=== PATIENT | female | born 1965 | race American Indian/Alaskan Native ===

== ENCOUNTER 2017-03-11 23:44 | Emergency (ER) | payer BC, MEDICARE ==
--- NOTE | 2017-03-12 02:18 | XRay Report ---
FINAL REPORT EXAM: XR CHEST ROUTINE 2V HISTORY: Shortness of breath. TECHNIQUE: Frontal and lateral radiographs of the chest were obtained. No prior studies are available for comparison. FINDINGS: There is borderline cardiomegaly. The lungs are clear bilaterally, without focal infiltrate or effusion. There is no pneumothorax. Mild spondylotic changes are seen in the spine. IMPRESSION: Borderline cardiomegaly. No active disease seen in the chest.
[2017-03-12 02:30] LABS: Basophils # (Auto) 0.1 K/mm3 (0.0-0.1); Eosinophils # (Auto) 0.1 K/mm3 (0.0-0.4); Eosinophils % (Auto) 1.1 % (0.0-4.3); Hematocrit 36.7 % (30.3-42.9); Lymphocytes % (Auto) 35.3 % (13.4-35.0); Mean Corpuscular HGB Conc 33 % (30-34); Mean Corpuscular Hemoglobin 28 pg (28-32); Mean Corpuscular Volume 86 fl (79-97); Monocytes # (Auto) 0.5 K/mm3 (0.0-0.8); Monocytes % (Auto) 5.9 % (0.0-7.3); Platelet Count 456 K/mm3 (140-440); Red Blood Count 4.26 M/mm3 (3.65-5.03); Red Cell Distribution Width 14.6 % (13.2-15.2)
[2017-03-12 02:50] LABS: Alanine Aminotransferase 11 units/L (7-56); BUN/Creatinine Ratio 13; Blood Urea Nitrogen 9 mg/dL (7-17); Calcium 9.4 mg/dL (8.4-10.2); Hemolysis Index 5
--- NOTE | 2017-03-12 13:00 | Emergency Department Report ---
ED Abdominal Pain HPI - General Chief Complaint: Abdominal Pain Stated Complaint: SOB; ABD PAIN Time Seen by Provider: 03/12/17 12:46 Source: patient Mode of arrival: Ambulatory Limitations: No Limitations - History of Present Illness Initial Comments: Is a 51-year-old female who is presenting with acid reflux symptoms. Patient states she was diagnosed with H. pylori 2 weeks ago by GI and was put on a Prevpac. Patient states she has been taking amoxicillin and this has made her GERD worse. Patient states amoxicillin does upset her stomach. Patient states that intermittently she will have also burning sensation in the chest with shortness of breath. This relaxes within several minutes. She also states she has not had a bowel movement in several days and feels very full. Patient is denying current chest pain shortness of breath fevers chills nausea vomiting or diarrhea at this time. - Related Data Previous Rx's Medication Instructions Recorded Last Taken Type Docusate Sodium [Colace] 100 mg PO BID #30 capsule 03/12/17 Unknown Rx Omeprazole 20 mg PO DAILY #30 tablet. 03/12/17 Unknown Rx Allergies Allergy/AdvReac Type Severity Reaction Status Date / Time No Known Allergies Allergy Unverified 03/12/17 01:40 ED Review of Systems ROS: Stated complaint: SOB; ABD PAIN Other details as noted in HPI Comment: All other systems reviewed and negative ED Past Medical Hx - Past Medical History Previous Medical History?: Yes Hx GERD: Yes Hx Asthma: Yes - Surgical History Past Surgical History?: Yes Additional Surgical History: gastric sleeve, uterine surgery - Social History Smoking Status: Never Smoker - Medications Home Medications: Home Medications Medication Instructions Recorded Confirmed Last Taken Type Docusate Sodium [Colace] 100 mg PO BID #30 capsule 03/12/17 Unknown Rx Omeprazole 20 mg PO DAILY #30 tablet. 03/12/17 Unknown Rx ED Physical Exam - General Limitations: No Limitations General appearance: alert, in no apparent distress - Head Head exam: Present: atraumatic, normocephalic - Eye Eye exam: Present: normal appearance - ENT ENT exam: Present: mucous membranes moist - Neck Neck exam: Present: normal inspection - Respiratory Respiratory exam: Present: normal lung sounds bilaterally. Absent: respiratory distress - Cardiovascular Cardiovascular Exam: Present: regular rate, normal rhythm. Absent: systolic murmur, diastolic murmur, rubs, gallop - GI/Abdominal GI/Abdominal exam: Present: soft, normal bowel sounds - Extremities Exam Extremities exam: Present: normal inspection - Back Exam Back exam: Present: normal inspection - Neurological Exam Neurological exam: Present: alert, oriented X3 - Psychiatric Psychiatric exam: Present: normal affect, normal mood - Skin Skin exam: Present: warm, dry, intact, normal color. Absent: rash ED Course Vital Signs 03/12/17 01:35 Temperature 97.2 F L Pulse Rate 71 Respiratory 16 Rate Blood Pressure 163/55 O2 Sat by Pulse 99 Oximetry ED Medical Decision Making - Lab Data Result diagrams: 03/12/17 02:05 03/12/17 02:05 - EKG Data -: EKG Interpreted by Fl - EKG Data Interpretation: other (EKG shows sinus rhythm rate of 69 is normal axis normal internal and no ST segment elevations or depressions entire interpretation is 4: 30) - Radiology Data Radiology results: report reviewed Chest x-ray interpretation no acute process - Medical Decision Making Patient is a 51-year-old [place] female with increased GERD symptoms. Patient has taken all of her full course of medications for H. pylori. Patient still having GERD symptoms. Patient stable for discharge to be placed on omeprazole and can take magnesium citrate for constipation Critical care attestation.: If time is entered above; I have spent that time in minutes in the direct care of this critically ill patient, excluding procedure time. ED Disposition Clinical Impression: GERD (gastroesophageal reflux disease) Qualifiers: Esophagitis presence: without esophagitis Qualified Code(s): K21.9 - Gastro- esophageal reflux disease without esophagitis Constipation Qualifiers: Constipation type: slow transit constipation Qualified Code(s): K59.01 - Slow transit constipation Disposition: -01 TO HOME OR SELFCARE Is pt being admited?: No Does the pt Need Aspirin: No Condition: Stable Instructions: Gastroesophageal Reflux Disease (ED), Constipation (ED) Prescriptions: Docusate Sodium [Colace] 100 mg PO BID #30 capsule Omeprazole 20 mg PO DAILY #30 tablet. Referrals: ANAY BOLIVAR MD [Primary Care Provider] - 3-5 Days
[2017-03-12 13:05] VITALS: BP 180/92
== END 2017-03-12 13:27 | disposition home or self-care (01) ==
LOC: ED 23:44
DX: K21.9 Gastro-esophageal reflux disease without esophagitis (principal); K59.00 Constipation, unspecified
CPT/HCPCS: 36415; 71046; 80053; 85025; 93005; 93010; 99284

== ENCOUNTER 2018-04-19 17:02 | Emergency (ER) | payer BC, MEDICARE ==
--- NOTE | 2018-04-19 18:07 | Emergency Department Report ---
Blank Doc - Documentation Documentation: 52 y/o obese AAF with PMH of HTN, GERD, HARVINDER, asthma, presents to ED c/o of [address] [facility] chest pain with non productive cough and congestion. Plan CXR
--- NOTE | 2018-04-19 19:32 | XRay Report ---
FINAL REPORT PROCEDURE: XR CHEST ROUTINE 2V TECHNIQUE: PA and lateral chest radiographs were obtained. CPT 50854 HISTORY: cough and chest tightness COMPARISON: 03/12/2017 FINDINGS: Heart: Normal. Mediastinum/Vessels: Normal. Lungs/Pleural space: No infiltrate, effusion, or pneumothorax. Bony thorax: No acute osseous abnormality. Other: IMPRESSION: No pulmonary infiltrates are identified.
[2018-04-19 19:56] VITALS: BP 149/90
[2018-04-19] MEDS ORDERED: SOLU-Medrol IM ONE (20:52)
--- NOTE | 2018-04-19 20:57 | Emergency Department Report ---
ED General Adult HPI - General Chief complaint: Upper Respiratory Infection Stated complaint: CHEST TIGHNESS/COUGHING Time Seen by Provider: 04/19/18 18:03 Source: patient Mode of arrival: Ambulatory Limitations: No Limitations - History of Present Illness Initial comments: Patient is 52 years old female with history of hypertension and diabetes and ast hma. Patient presented to the ER complaining of 2 weeks history of cough, nonproductive associated with mild shortness of breath and wheezing. Patient stated that she took 2 tablets of Zithromax that she had from a leftover from 2 months ago and she also took a breathing treatment at home and that did help with her symptoms. Patient denied any fever or chills. No nausea or vomiting. Severity scale (0 -10): 4 - Related Data Previous Rx's Medication Instructions Recorded Last Taken Type Docusate Sodium [Colace] 100 mg PO BID #30 capsule 03/12/17 Unknown Rx Omeprazole 20 mg PO DAILY #30 tablet. 03/12/17 Unknown Rx Allergies Allergy/AdvReac Type Severity Reaction Status Date / Time hydrochlorothiazide Allergy Shortness Verified 04/19/18 18:04 [From Hyzaar] of Breath Latex, Natural Rubber Allergy Itching Verified 04/19/18 18:04 losartan [From Hyzaar] Allergy Shortness Verified 04/19/18 18:04 of Breath nitrofurantoin Allergy Shortness Verified 04/19/18 18:04 [From Macrobid] of Breath Penicillins Allergy Shortness Verified 04/19/18 18:04 of Breath ED Review of Systems ROS: Stated complaint: CHEST TIGHNESS/COUGHING Other details as noted in HPI Comment: All other systems reviewed and negative Constitutional: denies: chills, diaphoresis, fever Respiratory: cough, wheezing. denies: orthopnea, shortness of breath, SOB with exertion, SOB at rest Cardiovascular: chest pain (when I cough). denies: palpitations Gastrointestinal: denies: abdominal pain, nausea, vomiting, diarrhea, constipation, hematemesis, melena, hematochezia Musculoskeletal: denies: back pain Neurological: denies: headache, weakness, numbness, paresthesias, confusion, abnormal gait ED Past Medical Hx - Past Medical History Hx Hypertension: Yes Hx GERD: Yes Hx Asthma: Yes Additional medical history: Sleep apnea - Surgical History Additional Surgical History: gastric sleeve, uterine surgery - Social History Smoking Status: Never Smoker Substance Use Type: None - Medications Home Medications: Home Medications Medication Instructions Recorded Confirmed Last Taken Type Docusate Sodium [Colace] 100 mg PO BID #30 capsule 03/12/17 Unknown Rx Omeprazole 20 mg PO DAILY #30 tablet. 03/12/17 Unknown Rx ED Physical Exam - General Limitations: No Limitations General appearance: alert, in no apparent distress - Head Head exam: Present: atraumatic, normocephalic, normal inspection - Eye Eye exam: Present: normal appearance, PERRL - ENT ENT exam: Present: normal exam, normal orophraynx, mucous membranes moist - Neck Neck exam: Present: normal inspection, full ROM. Absent: tenderness, meningismus, lymphadenopathy, thyromegaly - Respiratory Respiratory exam: Present: normal lung sounds bilaterally. Absent: respiratory distress, wheezes, rales, rhonchi, chest wall tenderness, accessory muscle use, decreased breath sounds, prolonged expiratory - Cardiovascular Cardiovascular Exam: Present: regular rate, normal rhythm, normal heart sounds - GI/Abdominal GI/Abdominal exam: Present: soft, normal bowel sounds. Absent: distended, tenderness, guarding, rebound, rigid, bruit, pulsatile mass, hernia - Extremities Exam Extremities exam: Present: normal inspection, full ROM, normal capillary refill. Absent: pedal edema, calf tenderness - Back Exam Back exam: Present: normal inspection, full ROM. Absent: tenderness, CVA tenderness (R), CVA tenderness (L), muscle spasm, paraspinal tenderness, vertebral tenderness - Neurological Exam Neurological exam: Present: alert, oriented X3, CN II-XII intact, normal gait, reflexes normal - Skin Skin exam: Present: warm, intact, normal color ED Course Vital Signs 04/19/18 04/19/18 04/19/18 18:05 19:51 19:55 Temperature 97.3 F L 97.9 F Pulse Rate 85 88 Respiratory 16 18 18 Rate Blood Pressure 176/78 Blood Pressure 149/90 [Right] O2 Sat by Pulse 100 Oximetry ED Medical Decision Making - Radiology Data Radiology results: report reviewed Referring Physician: NITHYA FRENCH Patient Name: ITA SYKES Date of : 1965 Sex: Female Report Date: 2018-04-19 Report Status: Finalized Findings [facility] [address] [place] [address] XRay Report Signed Patient: ITA SYKES MR#: [id number] : 1965 Acct:[id number] Age/Sex: 52 / F ADM Date: 04/19/18 Loc: ED Attending Dr: Ordering Physician: ИВАН GRAY Date of Service: 04/19/18 Procedure(s): XR chest routine 2V Accession Number(s): [id number] cc: ИВАН GRAY Fluoro Time In Minutes: FINAL REPORT PROCEDURE: XR CHEST ROUTINE 2V TECHNIQUE: PA and lateral chest radiographs were obtained. CPT 71303 HISTORY: cough and chest tightness COMPARISON: 03/12/2017 FINDINGS: Heart: Normal. Mediastinum/Vessels: Normal. Lungs/Pleural space: No infiltrate, effusion, or pneumothorax. Bony thorax: No acute osseous abnormality. Other: IMPRESSION: No pulmonary infiltrates are identified. Transcribed By: [facility] Dictated By: ISAIAS OGDEN M.D. Electronically Authenticated By: ISAIAS OGDEN M.D. Signed Date/Time: 04/19/181931 DD/ 30 TD/TT: 04/19/181930 - Medical Decision Making Patient is 52 years old female with history of hypertension and diabetes and asthma. Patient presented to the ER complaining of 2 weeks history of cough, nonproductive associated with mild shortness of breath and wheezing. Patient stated that she took 2 tablets of Zithromax that she had from a leftover from 2 months ago and she also took a breathing treatment at home and that did help with her symptoms. Patient denied any fever or chills. No nausea or vomiting. Patient is denying any chest pain at this moment. I believe the patient's symptoms is respiratory. Chest x-ray is unremarkable. I advised the patient to follow primary care physician in the next 2-3 days and to return to the ER if her symptoms are not improved. Critical care attestation.: If time is entered above; I have spent that time in minutes in the direct care of this critically ill patient, excluding procedure time. ED Disposition Clinical Impression: Acute bronchitis, Asthma exacerbation Disposition: - TO HOME OR SELFCARE Is pt being admited?: No Condition: Stable Instructions: Acute Bronchitis (ED) Forms: Work/School Release Form(ED)
== END 2018-04-19 21:30 | disposition home or self-care (01) ==
LOC: ED 17:02
DX: J20.9 Acute bronchitis, unspecified (principal); J45.901 Unspecified asthma with (acute) exacerbation; I10 Essential (primary) hypertension; E11.9 Type 2 diabetes mellitus without complications; K21.9 Gastro-esophageal reflux disease without esophagitis; G47.30 Sleep apnea, unspecified; Z88.0 Allergy status to penicillin; Z88.5 Allergy status to narcotic agent; Z91.040 Latex allergy status; Z98.84 Bariatric surgery status
CPT/HCPCS: 71046; 96372; 99283; J2930

== ENCOUNTER 2019-04-03 09:37 | Emergency (ER) | payer BC, MEDICARE ==
[2019-04-03 09:48] VITALS: BP 149/78
--- NOTE | 2019-04-03 11:14 | XRay Report ---
CHEST 2 VIEWS INDICATION: asthma exacerbation. COMPARISON: 06/18/2018 FINDINGS: Support devices: None. Heart: Within normal limits. Lungs/pleura: No acute air space or interstitial disease. No pneumothorax. Additional findings: None. IMPRESSION: No acute findings. Signer Name: Daniel Garza Jr, MD Signed: 04/03/2019 11:09 AM Workstation Name: [id number]
[2019-04-03] MEDS ORDERED: IPRATROPIUM/ALBUTEROL SULFATE 3 ML AMPUL.NEB IH ONE (13:53)
[2019-04-03] MEDS ORDERED: BENZONATATE 100 MG CAP PO ONE (13:53)
[2019-04-03] MEDS ORDERED: predniSONE 20 MG TAB PO ONE (13:53)
--- NOTE | 2019-04-03 15:01 | Emergency Department Report ---
- General Chief Complaint: Dyspnea/Respdistress Stated Complaint: ASTHMA/SOB Time Seen by Provider: 04/03/19 13:10 Source: patient Mode of arrival: Ambulatory Limitations: No Limitations - History of Present Illness Initial Comments: This is a 53-year-old female nontoxic, well nourished in appearance, no acute signs of distress presents to the ED with c/o of nonproductive cough, wheezing, rhinorrhea, nasal congestion x2 days. Patient denies any sick contacts. Patient denies any recent travels, long car, recent hospital stays. Patient denies any calf pain or calf tenderness. Patient denies any chest pain, short of breath, fever, chills, nausea, vomiting, hemoptysis, numbness, tingling, headache or stiff neck. MD Complaint: cough, rhinorrhea, nasal congestion -: days(s) Consistency: constant Improves With: nothing Worsens With: nothing Associated Symptoms: rhinorrhea, nasal congestion, cough. denies: fever, chills, myalgias, diaphoresis, sore throat, stiff neck, chest pain, shortness of breath, abdominal pain, nausea, vomiting, diarrhea, dysuria, rash, confusion, right sweats, weight loss, epistaxis, hoarseness, ear pain Treatments Prior to Arrival: none - Related Data Previous Rx's Medication Instructions Recorded Last Taken Type Docusate Sodium [Colace] 100 mg PO BID #30 capsule 03/12/17 Unknown Rx Omeprazole 20 mg PO DAILY #30 tablet. 03/12/17 Unknown Rx Prednisone [predniSONE 10 mg 10 mg PO .TAPER #1 tab.ds.pk 04/19/18 Unknown Rx (6-Day Pack, 21 Tabs)] guaiFENesin/CODEINE [Robitussin AC] 10 ml PO TID PRN #100 ml 04/19/18 Unknown Rx ALBUTEROL NEB's [Proventil 0.083% 2.5 mg IH Q4H PRN #25 vial 06/18/18 Unknown Rx NEBS] Acetaminophen [Tylenol Extra 1,000 mg PO QID PRN #30 tablet 06/18/18 Unknown Rx Strength] Azithromycin [Zithromax Z-JACI] 250 mg PO DAILY 1 Days #6 tab 06/18/18 Unknown Rx Benzonatate [Tessalon Perles] 100 mg PO Q8HR PRN #30 capsule 06/18/18 Unknown Rx dexAMETHasone [Decadron] 4 mg PO BID 3 Days #6 tablet 06/18/18 Unknown Rx Albuterol INH(or & Nicu Only) 2 puff IH QID PRN #8.5 gram 04/03/19 Unknown Rx [ProAir HFA Inhaler] Benzonatate [Tessalon Perles] 100 mg PO Q8HR PRN #20 capsule 04/03/19 Unknown Rx Allergies Allergy/AdvReac Type Severity Reaction Status Date / Time hydrochlorothiazide Allergy Shortness Verified 06/18/18 15:57 [From Hyzaar] of Breath Latex, Natural Rubber Allergy Itching Verified 06/18/18 15:57 losartan [From Hyzaar] Allergy Shortness Verified 06/18/18 15:57 of Breath nitrofurantoin Allergy Shortness Verified 06/18/18 15:57 [From Macrobid] of Breath Penicillins Allergy Shortness Verified 06/18/18 15:57 of Breath ED Review of Systems ROS: Stated complaint: ASTHMA/SOB Other details as noted in HPI Constitutional: denies: chills, fever Eyes: denies: eye pain, eye discharge, vision change ENT: congestion. denies: ear pain, throat pain Respiratory: cough, wheezing. denies: shortness of breath Cardiovascular: denies: chest pain, palpitations Endocrine: no symptoms reported Gastrointestinal: denies: abdominal pain, nausea, diarrhea Genitourinary: denies: urgency, dysuria, discharge Musculoskeletal: denies: back pain, joint swelling, arthralgia Skin: denies: rash, lesions Neurological: denies: headache, weakness, paresthesias Psychiatric: denies: anxiety, depression Hematological/Lymphatic: denies: easy bleeding, easy bruising ED Past Medical Hx - Past Medical History Previous Medical History?: Yes Hx Hypertension: Yes Hx GERD: Yes Hx Asthma: Yes Additional medical history: Sleep apnea - Surgical History Past Surgical History?: Yes Additional Surgical History: gastric sleeve, uterine surgery - Social History Smoking Status: Never Smoker Substance Use Type: None - Medications Home Medications: Home Medications Medication Instructions Recorded Confirmed Last Taken Type Docusate Sodium [Colace] 100 mg PO BID #30 capsule 03/12/17 Unknown Rx Omeprazole 20 mg PO DAILY #30 tablet. 03/12/17 Unknown Rx Prednisone [predniSONE 10 mg 10 mg PO .TAPER #1 tab.ds.pk 02/19/19 Unknown Rx (6-Day Pack, 21 Tabs)] guaiFENesin/CODEINE [Robitussin AC] 10 ml PO TID PRN #100 ml 04/19/18 Unknown Rx ALBUTEROL NEB's [Proventil 0.083% 2.5 mg IH Q4H PRN #25 vial 06/18/18 Unknown Rx NEBS] Acetaminophen [Tylenol Extra 1,000 mg PO QID PRN #30 tablet 06/18/18 Unknown Rx Strength] Azithromycin [Zithromax Z-JACI] 250 mg PO DAILY 1 Days #6 tab 06/18/18 Unknown Rx Benzonatate [Tessalon Perles] 100 mg PO Q8HR PRN #30 capsule 06/18/18 Unknown Rx dexAMETHasone [Decadron] 4 mg PO BID 3 Days #6 tablet 06/18/18 Unknown Rx Albuterol INH(or & Nicu Only) 2 puff IH QID PRN #8.5 gram 04/03/19 Unknown Rx [ProAir HFA Inhaler] Benzonatate [Tessalon Perles] 100 mg PO Q8HR PRN #20 capsule 04/03/19 Unknown Rx ED Physical Exam - General Limitations: No Limitations General appearance: alert, in no apparent distress - Head Head exam: Present: atraumatic, normocephalic - Eye Eye exam: Present: normal appearance - ENT ENT exam: Present: normal exam, normal orophraynx - Neck Neck exam: Present: normal inspection, full ROM. Absent: tenderness, meningismus, lymphadenopathy - Respiratory Respiratory exam: Present: wheezes. Absent: respiratory distress, rales, rhonchi, stridor, chest wall tenderness, accessory muscle use, decreased breath sounds, prolonged expiratory - Cardiovascular Cardiovascular Exam: Present: regular rate, normal rhythm, normal heart sounds. Absent: bradycardia, tachycardia, irregular rhythm, systolic murmur, diastolic murmur, rubs, gallop - Extremities Exam Extremities exam: Present: normal inspection, full ROM - Back Exam Back exam: Present: normal inspection, full ROM. Absent: tenderness, CVA tenderness (R), CVA tenderness (L), muscle spasm, paraspinal tenderness, vert ebral tenderness, rash noted - Neurological Exam Neurological exam: Present: alert, oriented X3, normal gait - Psychiatric Psychiatric exam: Present: normal affect, normal mood - Skin Skin exam: Present: warm, dry, intact, normal color. Absent: rash ED Course Vital Signs 04/03/19 09:42 Temperature 98.9 F Pulse Rate 87 Respiratory 18 Rate Blood Pressure 149/78 O2 Sat by Pulse 98 Oximetry - Reevaluation(s) Reevaluation #1: 04/03/19 14:59 Patient is speaking in full sentences with no signs of distress noted. ED Medical Decision Making - Medical Decision Making This is a 53-year-old female that presents with viral bronchitis. Patient is stable and was examined by me. Chest x-ray has been obtained and dictated by radiologist with normal exam. Patient is notified of x-ray results with no questions noted. Patient was instructed to increase hydration, rest and take Motrin for fever episodes. Patient received breathing treatment and steroids. Wheezing has subsided and patient staed is feeling better. Vitals stable. Patient is nonfebrile and normal heart rate. Patient was instructed Follow-up wi th a primary care doctor in 3-5 days or if symptoms worsen and continue return to emergency room as soon as possible. At time time of discharge, the patient does not seem toxic or ill in appearance. No acute signs of distress noted. Patient agrees to discharge treatment plan of care. No further questions noted by the patient. Critical care attestation.: If time is entered above; I have spent that time in minutes in the direct care of this critically ill patient, excluding procedure time. ED Disposition Clinical Impression: Viral bronchitis Disposition: DC-01 TO HOME OR SELFCARE Is pt being admited?: No Does the pt Need Aspirin: No Condition: Stable Instructions: Acute Bronchitis (ED) Additional Instructions: Follow-up with a primary care doctor in 3-5 days or if symptoms worsen and continue return to emergency room as soon as possible. Prescriptions: Albuterol INH(or & Nicu Only) [ProAir HFA Inhaler] 2 puff IH QID PRN #8.5 gram PRN Reason: Shortness Of Breath Benzonatate [Tessalon Perles] 100 mg PO Q8HR PRN #20 capsule PRN Reason: Cough Referrals: PRIMARY MD JOSE [Primary Care Provider] - 3-5 Days URBANO JONES MD [Staff Physician] - 3-5 Days [facility] [Outside] - 3-5 Days Forms: Work/School Release Form(ED)
== END 2019-04-03 15:44 | disposition home or self-care (01) ==
LOC: ED 09:37
DX: J20.8 Acute bronchitis due to other specified organisms (principal); I10 Essential (primary) hypertension; K21.9 Gastro-esophageal reflux disease without esophagitis; J45.909 Unspecified asthma, uncomplicated; Z98.890 Other specified postprocedural states; Z79.899 Other long term (current) drug therapy; Z91.040 Latex allergy status; Z88.2 Allergy status to sulfonamides; Z88.1 Allergy status to other antibiotic agents; Z88.0 Allergy status to penicillin; Z88.8 Allergy status to other drugs, medicaments and biological substances
CPT/HCPCS: 71046; 94640; 99283; J7512